=== PATIENT | female | born 1955 | race Caucasian/White ===

== ENCOUNTER 2020-03-02 14:25 | Emergency (ER) | payer OTHER, SELFPAY ==
[~2020-03-02] VITALS: Ht 158.8 cm; Wt 78.8 kg
[2020-03-02] MEDS ORDERED: LABETALOL 100MG/20ML VIAL IV STA ×2 (15:12→15:29)
--- NOTE | 2020-03-02 15:17 | REP ---
INDICATION: confused COMPARISON: None. TECHNIQUE: Axial noncontrast images from the skull base to the thoracic inlet with coronal reformations. This CT examination was performed using the following dose reduction techniques: Automated exposure control, adjustment of mA and/or kv according to the patient's size, and use of iterative reconstruction technique. FINDINGS: Age-related atrophy and microvascular ischemic changes are appreciated. There appears to be a small 1.5 cm suspected hemorrhagic focus in the central white matter of the left frontal lobe. No significant surrounding vasogenic edema or mass/mass effect is currently identified. No midline shift. Differential diagnosis would include solitary mass lesion/metastatic focus and correlation is required. Cerna-white differentiation is maintained. The ventricles and sulci are symmetric and normal. No extra-axial collection. No further hemorrhage or mass lesion appreciated. Calvarium is intact. Paranasal sinuses and mastoid air cells are clear. IMPRESSION: 1.5 cm hyperdense focus in the left frontal lobe. Differential diagnosis includes small hemorrhagic infarction versus mass/solitary metastasis. Correlation and follow-up is required. No prior examinations are available for comparison. No associated vasogenic edema, mass effect or midline shift noted. <Electronically signed by Walter Lee > 03/02/20 [id number]
[2020-03-02 15:27] LABS: BASO # 0.1 10^3/uL (0.0-0.2); BASO % 0.6 % (0.0-1.0); EOS % 0.2 % (0.0-3.0); HEMATOCRIT 43.4 % (36.0-47.0); HEMOGLOBIN 14.2 g/dl (12.0-15.5); LYMPH # 1.6 10^3/uL (1.5-5.0); LYMPH % 14.4 % (24.0-44.0); MEAN CORPUSCULAR HEMOGLOBIN 29.3 pg (27.0-33.0); MEAN CORPUSCULAR HGB CONC 32.7 g/dl (32.0-36.5); MEAN CORPUSCULAR VOLUME 89.5 fl (80.0-96.0); MONO # 0.5 10^3/uL (0.0-0.8); MONO % 4.5 % (0.0-5.0); NEUTROPHILS # 8.8 10^3/uL (1.5-8.5); NEUTROPHILS % 79.4 % (36.0-66.0); PLATELET COUNT, AUTOMATED 258 10^3/uL (150-450); RED BLOOD COUNT 4.85 10^6/uL (4.00-5.40)
[2020-03-02] MEDS ORDERED: LABETALOL HCL 200 MG in D5W 160 ML IV SCH (15:45)
--- NOTE | 2020-03-02 15:53 | ECGEPIP ---
[facility] - ED Test Date: 2020-03-02 Pat Name: JASVIR JARAMILLO Department: Room: - Gender: Female Channel Program Manager: goldie : 1955 Requested By: Zayra Zimmerman Order Number: [id number] Reading MD: Zayra Zimmerman Measurements Intervals [place] Rate: 104 P: 27 NV: 183 QRS: -9 QRSD: 79 T: 3 QT: 342 QTc: 451 Interpretive Statements SINUS TACHYCARDIA LEFT ATRIAL ENLARGEMENT POSSIBLE LEFT VENTRICULAR HYPERTROPHY POSSIBLE SEPTAL MYOCARDIAL INFARCTION, OF INDETERMINATE AGE NSTTW abnormalities No prior Electronically Signed on 03-02-2020 15:53:34 EST by Zayra Zimmerman
[2020-03-02 15:59] VITALS: BP 226/119
[2020-03-02 16:05] LABS: ALBUMIN 4.3 GM/DL (3.2-5.2); ALT/SGPT 36 U/L (12-78); BILIRUBIN,DIRECT 0.2 MG/DL (0.0-0.2); BILIRUBIN,TOTAL 0.9 MG/DL (0.2-1.0); BLOOD UREA NITROGEN 26 MG/DL (7-18); CALCIUM LEVEL 9.2 MG/DL (8.8-10.2); CARBON DIOXIDE LEVEL 24 MEQ/L (21-32); CHLORIDE LEVEL 113 MEQ/L (98-107); CK-MB VALUE MASS 4.2 NG/ML (<3.6); CPK CREATINE PHOSPHOKINASE 210 U/L (26-192); CREATININE FOR GFR 0.73 MG/DL (0.55-1.30); ETHYL ALCOHOL (ETHANOL) < 0.003 % (0.000-0.010); GLOMERULAR FILTRATION RATE > 60.0 (>45); GLUCOSE, FASTING 106 MG/DL (70-100); POTASSIUM SERUM 3.7 MEQ/L (3.5-5.1); SODIUM LEVEL 147 MEQ/L (136-145); TOTAL PROTEIN 7.4 GM/DL (6.4-8.2); TROPONIN I < 0.02 NG/ML (< 0.10)
[2020-03-02 16:30] VITALS: BP 200/111
[2020-03-02 16:46] LABS: RSV AMPLIFICATION NEGATIVE (NEGATIVE)
[2020-03-02 16:58] LABS: AMPHETAMINES LEVEL URINE NEGATIVE (NEGATIVE); BARBITURATES URINE NEGATIVE (NEGATIVE); BENZODIAZEPINES URINE NEGATIVE (NEGATIVE); CANNABINOIDS URINE NEGATIVE (NEGATIVE); COCAINE METABOLITE URINE NEGATIVE (NEGATIVE); METHADONE URINE NEGATIVE (NEGATIVE); OPIATES URINE NEGATIVE (NEGATIVE); PHENCYCLIDINE URINE NEGATIVE (NEGATIVE)
== END 2020-03-02 16:41 | disposition short-term general hospital (02) ==
LOC: M ED 14:25
DX: I61.9 Nontraumatic intracerebral hemorrhage, unspecified (principal); I16.1 Hypertensive emergency; R00.0 Tachycardia, unspecified; I51.7 Cardiomegaly
CPT/HCPCS: 70450; 80048; 80076; 80307; 82140; 82550; 82553; 83605; 84443; 84484; 85025; 87631; 93005; 93041; 94760; 96365; 96366; 96375; 99285; G0480

== ENCOUNTER → 2021-05-27 | Outpatient (CLI) | payer MEDICARE, OTHER ==
[~2021-05-27] MED LIST: PROHANCE 279.3MG/ML 15ML VIAL As Ordered ONE
== END ==
LOC: M RAD 12:36
PROVIDERS: ATTEND Neurological Surgery
DX: Q28.3 Other malformations of cerebral vessels (principal); G93.89 Other specified disorders of brain
CPT/HCPCS: 70553; A9576